=== PATIENT | female | born 1975 | race Hispanic/Latino ===

== ENCOUNTER 2021-09-19 18:23 | Emergency (ER) | payer OTHER ==
[~2021-09-19] VITALS: Ht 144.8 cm; Wt 68.0 kg
[2021-09-19] MEDS ORDERED: CEPH500B PO (20:14)
[2021-09-19] MEDS ORDERED: NAPR-1180 PO (20:14)
[2021-09-19] MEDS ORDERED: TETANUS/DIPHTHERIA TOXOID [ADULT] 0.5 ML VIAL IM ONE (20:30)
[2021-09-19] MEDS ORDERED: HYDROCODONE/ACETAMINOPHEN 5/325 MG TAB PO ONE (20:30)
[2021-09-19] MEDS ORDERED: CEPHALEXIN 500 MG CAPSULE PO ONE (20:30)
[2021-09-19 20:34] VITALS: BP 115/62
== END 2021-09-19 20:39 | disposition home or self-care (01) ==
LOC: EDH 18:23
DX: S90.811A Abrasion, right foot, initial encounter (principal); M79.641 Pain in right hand; X58.XXXA Exposure to other specified factors, initial encounter; Y93.89 Activity, other specified; Y92.89 Other specified places as the place of occurrence of the external cause; Y99.8 Other external cause status
CPT/HCPCS: 73630; 90471; 90714